=== PATIENT | male | born 2000 | race Two or more races ===

== ENCOUNTER 2022-01-05 00:29 | Emergency (ER) | payer SELFPAY ==
[~2022-01-05] VITALS: Ht 162.6 cm; Wt 56.7 kg
[2022-01-05 02:12] VITALS: BP 118/70
[2022-01-05] MEDS ORDERED: CEPH500T PO (02:32)
[2022-01-05] MEDS ORDERED: SULF1TAB48 PO (02:32)
== END 2022-01-05 02:40 | disposition home or self-care (01) ==
LOC: ER 00:37
DX: H66.41 Suppurative otitis media, unspecified, right ear (principal)

== ENCOUNTER 2022-01-11 02:53 | Emergency (ER) | payer MEDICAID ==
[~2022-01-11] VITALS: Ht 162.6 cm; Wt 56.7 kg
[~2022-01-11 02:53] MED LIST: CEPH500T PO; SULF1TAB48 PO
[2022-01-11 03:16] VITALS: BP 133/68
--- NOTE | 2022-01-11 03:30 | NUR ---
AT BED SIDE FOR I&D
--- NOTE | 2022-01-11 03:50 | NUR ---
Patient discharged to home in stable condition. Written and verbal after care instructions given. Patient verbalizes understanding of instruction.
== END 2022-01-11 03:51 | disposition home or self-care (01) ==
LOC: ER 03:03
DX: H60.01 Abscess of right external ear (principal); Z79.899 Other long term (current) drug therapy
CPT/HCPCS: 69000; 99282; A6403